=== PATIENT | male | born 1950 | race Caucasian/White ===

== ENCOUNTER → 2017-07-06 | Outpatient (CLI) | payer OTHER ==
[2017-07-06 10:03] LABS: ABSOLUTE BASOPHILS # (AUTO) 0.1 10^3/uL (0.0-0.2); ABSOLUTE EOSINOPHILS # (AUTO) 0.7 10^3/uL (0.0-0.6); ABSOLUTE MONOCYTES (AUTO) 0.8 10^3/uL (0.1-1.4); ABSOLUTE NEUT (AUTO) 4.2 10^3/uL (1.7-8.2); BASOPHILS % (AUTO) 1.1 % (0-2); EOSINOPHILS % (AUTO) 9.2 % (0-6); HEMATOCRIT 44.2 % (37.9-51.0); HEMOGLOBIN 15.3 g/dL (13.5-17.0); HGB HCT DIFFERENCE 1.7; LYMPHOCYTES % (AUTO) 25.5 % (13-45); MEAN CORPUSCULAR HEMOGLOBIN 31.1 pg (27.0-33.4); MEAN CORPUSCULAR HGB CONC 34.5 g/dL (32.0-36.0); MEAN CORPUSCULAR VOLUME 90 fl (80-97); MONOCYTES % (AUTO) 9.8 % (3-13); RED BLOOD COUNT 4.92 10^6/uL (4.35-5.55); RED CELL DISTRIBUTION WIDTH 13.4 % (11.5-14.0); SEGMENTED NEUTROPHILS % (AUTO) 54.4 % (42-78); WHITE BLOOD COUNT 7.8 10^3/uL (4.0-10.5)
[2017-07-06 10:27] LABS: ALANINE AMINOTRANSFERASE 62 U/L (21-72); ALKALINE PHOSPHATASE 188 U/L (38-126); ANION GAP 14 (5-19); ASPARTATE AMINO TRANSFERASE 39 U/L (17-59); BILIRUBIN,DIRECT 0.4 mg/dL (0.0-0.4); BILIRUBIN,TOTAL 0.5 mg/dL (0.2-1.3); BLOOD UREA NITROGEN 14 mg/dL (7-20); CALCIUM 9.6 mg/dL (8.4-10.2); CARBON DIOXIDE 23 mmol/L (22-30); CHLORIDE 108 mmol/L (98-107); CREATININE RESULT 0.93 mg/dL (0.52-1.25); GLUCOSE 91 mg/dL (75-110); POTASSIUM 4.5 mmol/L (3.6-5.0); SODIUM 145.1 mmol/L (137-145); TOTAL PROTEIN 7.1 g/dL (6.3-8.2)
== END ==
LOC: OD 08:49
PROVIDERS: ATTEND Internal Medicine
DX: E10.9 Type 1 diabetes mellitus without complications (principal); Z12.5 Encounter for screening for malignant neoplasm of prostate
CPT/HCPCS: 36415; 80053; 82043; 83036; 84443; 85025

== ENCOUNTER → 2017-10-28 | Outpatient (CLI) | payer OTHER ==
--- NOTE | 2017-10-28 13:08 | RADIOLOGY REPORT (SQ) ---
EXAM DESCRIPTION: U/S ABDOMEN LIMITED W/O DOP COMPLETED DATE/TIME: 10/28/2017 10:50 am REASON FOR STUDY: ABN LFT R79.89 OTHER SPECIFIED ABNORMAL FINDINGS OF BLOOD CHEMISTRY COMPARISON: None. TECHNIQUE: Dynamic and static grayscale images acquired of the abdomen and recorded on PACS. Additio nal selected color Doppler and spectral images recorded. LIMITATIONS: Midline bowel gas FINDINGS: PANCREAS: Not well seen LIVER: No masses. Echotexture normal. LIVER VASCULATURE: Normal directional flow of the main portal vein and hepatic veins. GALLBLADDER: No stones. Normal wall thickness. No pericholecystic fluid. ULTRASOUND-DETECTED DE GUZMAN'S SIGN: Negative. INTRAHEPATIC DUCTS AND COMMON DUCT: No intrahepatic bile duct dilatation very common duct 4 mm at the joseph hepatis. Distal most common duct not well seen due to duodenum gas INFERIOR VENA CAVA: Not well seen AORTA: Not well seen RIGHT KIDNEY: Normal size. Normal echogenicity. No solid or suspicious masses. 3 cm right lower iris e renal cortical cyst. No hydronephrosis. No calcifications. PERITONEAL AND RIGHT PLEURAL SPACE: No ascites or effusions. OTHER: No other significant findings. IMPRESSION: Limited visualization of the pancreas, inferior vena cava, aorta, and distal common duct with midline upper abdominal bowel gas. No liver masses. No gallstones. No right renal hydronephrosis TECHNICAL DOCUMENTATION: JOB ID: [id number] [employer]- All Rights Reserved
== END ==
LOC: RAD 09:47
PROVIDERS: ATTEND Family Medicine Geriatric Medicine
DX: R79.89 Other specified abnormal findings of blood chemistry (principal)
CPT/HCPCS: 76705

== ENCOUNTER → 2017-10-28 | Outpatient (CLI) | payer OTHER ==
[2017-10-28 12:38] LABS: ALANINE AMINOTRANSFERASE 36 U/L (21-72); ALBUMIN 4.2 g/dL (3.5-5.0); ALKALINE PHOSPHATASE 141 U/L (38-126); ANION GAP 9 (5-19); ASPARTATE AMINO TRANSFERASE 29 U/L (17-59); BILIRUBIN,DIRECT 0.1 mg/dL (0.0-0.4); BILIRUBIN,TOTAL 0.4 mg/dL (0.2-1.3); BLOOD UREA NITROGEN 10 mg/dL (7-20); CALCIUM 9.6 mg/dL (8.4-10.2); CARBON DIOXIDE 26 mmol/L (22-30); CHLORIDE 108 mmol/L (98-107); CHOLESTEROL 130.28 mg/dL (0-200); GLUCOSE 91 mg/dL (75-110); POTASSIUM 4.5 mmol/L (3.6-5.0); SODIUM 143.1 mmol/L (137-145); TOTAL PROTEIN 6.7 g/dL (6.3-8.2); TRIGLYCERIDES 95 mg/dL (<150)
[2017-10-28 12:50] LABS: DIRECT LDL 57 mg/dL (<100)
== END ==
LOC: OD 11:27
PROVIDERS: ATTEND Family Medicine Geriatric Medicine
DX: E11.9 Type 2 diabetes mellitus without complications (principal); R79.89 Other specified abnormal findings of blood chemistry; Z79.899 Other long term (current) drug therapy
CPT/HCPCS: 36415; 80048; 80061; 80076

== ENCOUNTER 2018-01-04 05:15 | Day surgery (SDC) | payer MEDICARE, OTHER ==
[2017-12-28 08:52] LABS: HEMATOCRIT 45.1 % (37.9-51.0); HEMOGLOBIN 15.4 g/dL (13.5-17.0); MEAN CORPUSCULAR HEMOGLOBIN 30.7 pg (27.0-33.4); MEAN CORPUSCULAR HGB CONC 34.1 g/dL (32.0-36.0); MEAN CORPUSCULAR VOLUME 90 fl (80-97); PLATELET COUNT 241 10^3/uL (150-450); RED CELL DISTRIBUTION WIDTH 13.6 % (11.5-14.0); WHITE BLOOD COUNT 9.2 10^3/uL (4.0-10.5)
--- NOTE | 2017-12-28 23:31 | EKG REPORT ---
SEVERITY:- BORDERLINE ECG - SINUS RHYTHM BORDERLINE T WAVE ABNORMALITIES : Confirmed by: Noemí Navarro 28-Dec-2017 23:29:34
[~2018-01-04 05:15] MED LIST: ACETAMINOPHEN 325 MG TABLET PO PRN; CEFAZOLIN 1 GM/D5W RTU 1 GM/50 ML RTUPB IV PRN; LACTATED RINGERS 1000 ML IV PRN; LIDOCAINE 0.5% INJ-PF (5 MG/ML) 50 ML SDV SUBCUT PRN
[2018-01-04] MEDS ORDERED: ALBUTEROL SULFATE 0.083% NEB 2.5 MG/3 ML AMPUL NEB ONE (05:53)
[2018-01-04] MEDS ORDERED: BUPIVACAINE HCL 0.25 % INJ/PF (2.5 MG/1 ML) 30 ML VIAL ONE (06:40)
[2018-01-04] MEDS ORDERED: FENTANYL CITRATE INJ/PF 250 MCG/5 ML AMPULE ONE (07:01)
[2018-01-04] MEDS ORDERED: MIDAZOLAM 2 MG/2 ML INJ ONE (07:01)
[2018-01-04] MEDS ORDERED: LIDOCAINE 2% INJ-PF (20 MG/ML) 10 ML AMPUL ONE (07:01)
[2018-01-04] MEDS ORDERED: PROPOFOL INJ 200 MG/20 ML VIAL IV ONE (07:02)
[2018-01-04] MEDS ORDERED: ACETAMINOPHEN 100 ML IV ONE (07:02)
[2018-01-04] MEDS ORDERED: ONDANSETRON HCL INJ/PF 4 MG/2 ML SDV IV PRN ×2 (07:58→08:31)
[2018-01-04] MEDS ORDERED: PROMETHAZINE HCL INJ 25 MG/1 ML VIAL IV PRN ×2 (07:58)
[2018-01-04] MEDS ORDERED: FENTANYL CITRATE INJ/PF 100 MCG/2 ML AMPUL IV PRN ×3 (07:58)
[2018-01-04] MEDS ORDERED: DIPHENHYDRAMINE HCL 50 MG/ML VIAL IV PRN (07:58)
[2018-01-04] MEDS ORDERED: MORPHINE SULFATE 10 MG/ML INJ IV PRN (07:58)
[2018-01-04] MEDS ORDERED: MEPERIDINE HCL/PF INJ 25 MG/1 ML DISP.SYRIN IV PRN (07:58)
[2018-01-04] MEDS ORDERED: OXYCODONE-ACETAMINOPHEN 5-325 MG TABLET PO PRN ×3 (07:58→08:30)
--- NOTE | 2018-01-04 08:29 | Discharge Summary ---
Discharge Summary (SDC) - Discharge Final Diagnosis: Umbilical hernia Date of Surgery: 01/04/18 Discharge Date: 01/04/18 Condition: Stable Treatment or Instructions: [facility] [address] [place] [id number] Discharge Instructions: Laparoscopic Surgery 1. General Information: a. DO NOT DRIVE a car or operate dangerous machinery for 3-4 days or while taking narcotic pain pills. b. DO NOT consume alcohol, tranquilizers, sleeping medications or any non- prescribed medications for 24 hours unless approved by your doctor or as long as taking narcotic prescription medications. c. DO NOT make important decisions or sign any important papers for the first 24 hours after surgery. d. When discharged home the same day of surgery have a responsible person with you for the first night. 2. Activity Restrictions:8 weeks. a. NO heavy lifting, straining abdominal muscles, bending over a lot, yard work, house work, or sports for [address] for 3-4 days . c. It is fine to go for walks, up and down steps, ride in a car. d. Elevate your head when sleeping/resting. 3. Treatment: a. You may shower 48 hours after surgery, no baths or swimming for 2 weeks. Remove dressing with tape over belly button prior to shower. Remove band-aids or dressings before shower but leave paper strips (steri-strips) on the skin to fall off on their own. If still on at postoperative visit they will be removed then. b. Drainage of fluid or blood is not unusual from an incision. If occurs, you can clean with peroxide and cotton ball daily and cover with dry gauze until the wound seals. c. If a lot of bleeding occurs, you can hold pressure with a gauze or cloth over the site for 10 minutes and it will usually stop. If bleeding continues you will need to call for possible evaluation in office or emergency room. 4. Medications: a. __Toradol___ may be taken for pain as needed, one tablet every 6 hours. b. You should resume all normal medications unless a change is specified by your doctors. 5. Diet: Normal diet 6. The following may occur after laparoscopic surgery: a. Shoulder or upper back ache from retained gas that should resolve in 1-2 days b. Soreness and bruising at incision sites will resolve with time. c. Scrotal swelling (labia in women) and bruising is often seen after hernia surgery. d. Sore throat e. Fatigue may last days to weeks. f. Difficulty urinating may occur and may need to come into emergency room for urinary catheter placement. 7. Notify Physician If: a. Worsening or pain not improved with pain medication b. Persistent nausea and vomiting c. Fever above 101 d. Persistent bleeding or swelling at operative site e. Unable to urinate and uncomfortable bladder 6-8 hours after surgery 8..Follow Up Care: a. Schedule a follow up appointment with your doctor for 2 weeks. In the event of any postoperative problems or questions or you may call the office during business hours or the On-Call physician evenings and weekends at [facility]. [facility] I understand the instructions for my postoperative care as described above and a copy has been given to me. Patient/Significant Other Witness Date Prescriptions: Ketorolac Tromethamine [Toradol 10 mg Tablet] 10 mg PO Q6HP PRN #20 tablet PRN Reason: Referrals: IRASEMA RICE MD [Primary Care Provider] - Discharge Diet: As Tolerated Discharge Activity: No Lifting Over 10 Pounds, Walk Frequently, Other - Wear abdominal binder daily Report the Following to Your Physician Immediately: Nausea, Vomiting, Fever over 101 Degrees, Unusual Bleeding, Redness, Drainage-Foul Smelling
--- NOTE | 2018-01-04 08:32 | Operative Report ---
Operative Report DATE OF SURGERY: 01/04/18 PREOPERATIVE DIAGNOSIS: Recurrent umbilical hernia POSTOPERATIVE DIAGNOSIS: Same OPERATION: Laparoscopic primary closure and reinforcement of umbilical hernia, recurrent, with intraperitoneal polypropylene 9 cm Covidien mesh SURGEON: JOSE L PUENTES 1ST SCANNING MANAGER: KRISTY IRWIN ANESTHESIA: GA TISSUE REMOVED OR ALTERED: Fragments of incarcerated fat COMPLICATIONS: None ESTIMATED BLOOD LOSS: Scant INTRAOPERATIVE FINDINGS: See below PROCEDURE: The patient was taken to the preop holding area the main operating room where general anesthesia was induced. Arms abducted, abdominal wall prepped and draped sterile fashion with Betadine Surgical plan and surgical timeout conducted. Markings were made on the skin for 3 port scopic approach. Skin was anesthetized with plain lidocaine 1%. A small shakira was made in the left upper quadrant with 11 blade, Veress needle inserted the peritoneal cavity pneumoperitoneum was established. Veress needle was removed, 5 mm port was inserted 5 mm viewing scope was inserted. Under direct visualization 2 additional ports are placed, both 5 mm, one on left lower quadrant one of the right mid field. Findings are significant for omentum incarcerated into the recurrent umbilical hernia. Also there were sutures and/or lazaro, approximately 3 and a horizontal line of the umbilical hernia defect consistent with his hernia repair. We could not visualize mesh directly. The omentum was brought out of the umbilicus using a combination of blunt and electrocautery dissection. The hernia sac was left in situ which was quite thin. There was no significant bleeding. We closed the hernia defect with a single #1-0 PDS suture [id number] fashion in a vertical orientation. Pneumoperitoneum was decompressed during knot tying. We now brought onto the field a 9 cm Covidien polypropylene mesh, marked it accordingly, affixed 0 PDS sutures 12, 3, 6, 9:00 positions, rolled it , brought up to the anterior abdominal wall at the right lower quadrant site incision. The mesh was unrolled and brought up to the intra-abdominal wall, and secured into position at the 4 sites with the percutaneous suture passer. Knots were tied. We then came back around, deploying 2 rows of secure tack lazaro, approximately 15 total lysed. Completion images showed excellent positioning and vision of the mesh to the intra-abdominal wall. We checked the viscera for bleeding and any evidence of injury and there was none. We felt the operation was complete. Sponge and needle counts correct. All ports removed under direct visualization, pneumoperitoneum evacuated, wounds closed with 3-0 Vicryl benzoin and Steri-Strips. Patient tolerated procedure well, extubated, taken recovery in stable condition. The physician child welfare assistant, Ms. Tovar, provided assistance during this case by: Assisting and port insertion, retracting tissue, instillation of local anesthesia and closure of skin incisions.
[2018-01-04 11:57] VITALS: BP 133/81
[2018-01-04] MEDS ORDERED: DEXAMETHASONE SOD PHOSPHATE INJ 4 MG/1 ML VIAL ONE (12:10)
[2018-01-04] MEDS ORDERED: KETOROLAC TROMETHAMINE 60 MG/2 ML SDV ONE (12:10)
[2018-01-04] MEDS ORDERED: GLYCOPYRROLATE INJ 0.4 MG/2 ML VIAL ONE (12:10)
[2018-01-04] MEDS ORDERED: SUCCINYLCHOLINE CHLORIDE INJ 200 MG/10 ML VIAL ONE (12:10)
[2018-01-04] MEDS ORDERED: ONDANSETRON HCL INJ/PF 4 MG/2 ML SDV ONE (12:10)
[2018-01-04] MEDS ORDERED: NEOSTIGMINE METHYLSULFATE 10 MG/10 ML VIAL ONE (12:10)
[2018-01-04] MEDS ORDERED: ROCURONIUM BROMIDE INJ 50 MG/5 ML VIAL IV ONE (12:10)
== END 2018-01-04 10:50 | disposition home or self-care (01) ==
LOC: OROUT 05:15
PROVIDERS: ATTEND Surgery
PROC: 0WUF4JZ Supplement Abdominal Wall with Synthetic Substitute, Percutaneous Endoscopic Approach (ICD-10-PCS; principal; 2018-01-04 07:30)
DX: K42.9 Umbilical hernia without obstruction or gangrene (principal); J45.909 Unspecified asthma, uncomplicated; E11.9 Type 2 diabetes mellitus without complications; I10 Essential (primary) hypertension; Z87.891 Personal history of nicotine dependence; Z79.84 Long term (current) use of oral hypoglycemic drugs; Z79.51 Long term (current) use of inhaled steroids
CPT/HCPCS: 93005; 36415 ×2; 82962; 84132; 85027; 93010; 49652; C1781; J2250; J0690; J3490 ×2; J1100; J1885; J3010; A9270 ×2; J0330; J2405; J2704; J0131; 752

== ENCOUNTER → 2018-01-26 | Outpatient (CLI) | payer MEDICARE, OTHER ==
[2018-01-26 11:06] LABS: ALANINE AMINOTRANSFERASE 39 U/L (21-72); ALBUMIN 4.1 g/dL (3.5-5.0); ALKALINE PHOSPHATASE 172 U/L (38-126); ANION GAP 12 (5-19); ASPARTATE AMINO TRANSFERASE 30 U/L (17-59); BILIRUBIN,DIRECT 0.2 mg/dL (0.0-0.4); BILIRUBIN,TOTAL 0.6 mg/dL (0.2-1.3); BLOOD UREA NITROGEN 16 mg/dL (7-20); CALCIUM 9.8 mg/dL (8.4-10.2); CARBON DIOXIDE 30 mmol/L (22-30); CHLORIDE 101 mmol/L (98-107); CHOLESTEROL 140.58 mg/dL (0-200); GLUCOSE 136 mg/dL (75-110); SODIUM 142.8 mmol/L (137-145); TOTAL PROTEIN 6.9 g/dL (6.3-8.2); TRIGLYCERIDES 91 mg/dL (<150)
[2018-01-26 11:17] LABS: DIRECT LDL 55 mg/dL (<100)
[2018-01-27 14:02] LABS: MICROALBUMIN URINE <3.0 ug/mL (Not Estab.)
== END ==
LOC: OD 10:02
PROVIDERS: ATTEND Family Medicine Geriatric Medicine
DX: E11.9 Type 2 diabetes mellitus without complications (principal); I10 Essential (primary) hypertension; E78.5 Hyperlipidemia, unspecified; E66.9 Obesity, unspecified; Z79.899 Other long term (current) drug therapy
CPT/HCPCS: 36415; 80053; 80061; 82043; 82570; 83036

== ENCOUNTER → 2018-09-15 | Outpatient (CLI) | payer MEDICARE, OTHER ==
[2018-09-15 08:20] LABS: ABSOLUTE BASOPHILS # (AUTO) 0.1 10^3/uL (0.0-0.2); ABSOLUTE EOSINOPHILS # (AUTO) 0.4 10^3/uL (0.0-0.6); ABSOLUTE LYMPHOCYTES (AUTO) 2.2 10^3/uL (0.5-4.7); ABSOLUTE MONOCYTES (AUTO) 0.7 10^3/uL (0.1-1.4); ABSOLUTE NEUT (AUTO) 4.6 10^3/uL (1.7-8.2); EOSINOPHILS % (AUTO) 5.5 % (0-6); HEMATOCRIT 44.6 % (37.9-51.0); LYMPHOCYTES % (AUTO) 27.5 % (13-45); MEAN CORPUSCULAR HEMOGLOBIN 30.8 pg (27.0-33.4); MEAN CORPUSCULAR HGB CONC 33.7 g/dL (32.0-36.0); MEAN CORPUSCULAR VOLUME 91 fl (80-97); MONOCYTES % (AUTO) 8.5 % (3-13); PLATELET COUNT 217 10^3/uL (150-450); RED BLOOD COUNT 4.88 10^6/uL (4.35-5.55); RED CELL DISTRIBUTION WIDTH 14.8 % (11.5-14.0); SEGMENTED NEUTROPHILS % (AUTO) 57.5 % (42-78); TOTAL CELLS COUNTED % (AUTO) 100 %
[2018-09-15 08:47] LABS: ALANINE AMINOTRANSFERASE 30 U/L (21-72); ALBUMIN 3.8 g/dL (3.5-5.0); ALKALINE PHOSPHATASE 140 U/L (38-126); ANION GAP 9 (5-19); ASPARTATE AMINO TRANSFERASE 28 U/L (17-59); BILIRUBIN,DIRECT 0.2 mg/dL (0.0-0.4); BILIRUBIN,TOTAL 0.6 mg/dL (0.2-1.3); BLOOD UREA NITROGEN 16 mg/dL (7-20); CALCIUM 9.2 mg/dL (8.4-10.2); CARBON DIOXIDE 24 mmol/L (22-30); CHLORIDE 110 mmol/L (98-107); CHOLESTEROL 115.87 mg/dL (0-200); GLUCOSE 103 mg/dL (75-110); POTASSIUM 4.2 mmol/L (3.6-5.0); TOTAL PROTEIN 6.4 g/dL (6.3-8.2); TRIGLYCERIDES 87 mg/dL (<150)
[2018-09-15 09:01] LABS: DIRECT LDL 56 mg/dL (<100)
[2018-09-16 11:37] LABS: CREATININE URINE 117.9 mg/dL (Not Estab.)
[2018-09-16 18:06] LABS: MICROALBUMIN URINE <3.0 ug/mL (Not Estab.)
== END ==
LOC: OD 07:45
PROVIDERS: ATTEND Family Medicine Geriatric Medicine
DX: E11.9 Type 2 diabetes mellitus without complications (principal); E78.5 Hyperlipidemia, unspecified; Z79.899 Other long term (current) drug therapy
CPT/HCPCS: 36415; 80053; 80061; 82043; 82570; 83036; 85025

== ENCOUNTER → 2018-12-29 | Outpatient (CLI) | payer MEDICARE, OTHER ==
[2018-12-29 09:23] LABS: ALANINE AMINOTRANSFERASE 36 U/L (21-72); ALBUMIN 3.9 g/dL (3.5-5.0); ALKALINE PHOSPHATASE 128 U/L (38-126); ASPARTATE AMINO TRANSFERASE 27 U/L (17-59); BILIRUBIN,DIRECT 0.2 mg/dL (0.0-0.4); BILIRUBIN,TOTAL 0.6 mg/dL (0.2-1.3); CHOLESTEROL 126.55 mg/dL (0-200); TOTAL PROTEIN 6.2 g/dL (6.3-8.2); TRIGLYCERIDES 160 mg/dL (<150)
[2018-12-29 09:34] LABS: DIRECT LDL 54 mg/dL (<100)
== END ==
LOC: OD 08:27
PROVIDERS: ATTEND Family Medicine Geriatric Medicine
DX: R79.89 Other specified abnormal findings of blood chemistry (principal); Z79.899 Other long term (current) drug therapy
CPT/HCPCS: 36415; 80061; 80076

== ENCOUNTER → 2019-03-12 | Outpatient (CLI) | payer OTHER ==
--- NOTE | 2019-03-13 09:10 | RADIOLOGY REPORT (SQ) ---
EXAM DESCRIPTION: MRI RT LOWER EXTREMITY WITHOUT COMPLETED DATE/TIME: 03/12/2019 6:55 pm REASON FOR STUDY: M79.651 PAIN IN RIGHT THIGH M79.651 PAIN IN RIGHT THIGH COMPARISON: None. TECHNIQUE: Multiplanar imaging of the right thigh to include fat and fluid sensitive sequences. LIMITATIONS: None. FINDINGS: BONE MARROW: Normal. SOFT TISSUES: There is a high-grade partial tear of the semimembranosus tendon near the musculotendin ous junction in the mid thigh. There is associated 2.5 cm diameter by 6 cm craniocaudal diameter hem atoma. Neurovascular structures appear intact. OTHER: No other significant finding. IMPRESSION: High-grade partial tear of the semimembranosus tendon musculotendinous junction. TECHNICAL DOCUMENTATION: JOB ID: [id number] [employer]- All Rights Reserved Reading location - IP/workstation name: [email or web address]
== END ==
LOC: RAD 17:30
PROVIDERS: ATTEND Orthopaedic Surgery
DX: S76.811A Strain of other specified muscles, fascia and tendons at thigh level, right thigh, initial encounter (principal); M79.651 Pain in right thigh; X58.XXXA Exposure to other specified factors, initial encounter

== ENCOUNTER → 2019-05-17 | Outpatient (CLI) | payer MEDICAID, MEDICARE ==
[2019-05-17 12:28] LABS: ALBUMIN 4.2 g/dL (3.5-5.0); ALKALINE PHOSPHATASE 144 U/L (38-126); ANION GAP 9 (5-19); ASPARTATE AMINO TRANSFERASE 28 U/L (17-59); BILIRUBIN,DIRECT 0.3 mg/dL (0.0-0.4); BILIRUBIN,TOTAL 0.5 mg/dL (0.2-1.3); BLOOD UREA NITROGEN 14 mg/dL (7-20); CALCIUM 9.6 mg/dL (8.4-10.2); CARBON DIOXIDE 26 mmol/L (22-30); CHLORIDE 105 mmol/L (98-107); CHOLESTEROL 131.65 mg/dL (0-200); GLUCOSE 95 mg/dL (75-110); POTASSIUM 4.5 mmol/L (3.6-5.0); TOTAL PROTEIN 7.2 g/dL (6.3-8.2); TRIGLYCERIDES 142 mg/dL (<150)
[2019-05-17 12:45] LABS: DIRECT LDL 68 mg/dL (<100)
== END ==
LOC: OD 11:07
PROVIDERS: ATTEND Family Medicine Geriatric Medicine
DX: E78.5 Hyperlipidemia, unspecified (principal); E11.9 Type 2 diabetes mellitus without complications; I10 Essential (primary) hypertension; Z79.899 Other long term (current) drug therapy
CPT/HCPCS: 36415; 80053; 80061; 82043; 82570; 83036

== ENCOUNTER → 2019-09-20 | Outpatient (CLI) | payer MEDICARE, OTHER ==
[2019-09-20 09:55] LABS: ABSOLUTE BASOPHILS # (AUTO) 0.1 10^3/uL (0.0-0.2); ABSOLUTE EOSINOPHILS # (AUTO) 0.4 10^3/uL (0.0-0.6); ABSOLUTE LYMPHOCYTES (AUTO) 2.2 10^3/uL (0.5-4.7); ABSOLUTE MONOCYTES (AUTO) 0.7 10^3/uL (0.1-1.4); ABSOLUTE NEUT (AUTO) 3.9 10^3/uL (1.7-8.2); BASOPHILS % (AUTO) 1.2 % (0-2); HEMATOCRIT 47.5 % (37.9-51.0); HEMOGLOBIN 16.2 g/dL (13.5-17.0); LYMPHOCYTES % (AUTO) 30.2 % (13-45); MEAN CORPUSCULAR HEMOGLOBIN 31.1 pg (27.0-33.4); MEAN CORPUSCULAR HGB CONC 34.1 g/dL (32.0-36.0); MEAN CORPUSCULAR VOLUME 91 fl (80-97); PLATELET COUNT 195 10^3/uL (150-450); RED BLOOD COUNT 5.21 10^6/uL (4.35-5.55); RED CELL DISTRIBUTION WIDTH 13.4 % (11.5-14.0); SEGMENTED NEUTROPHILS % (AUTO) 53.6 % (42-78); TOTAL CELLS COUNTED % (AUTO) 100 %; WHITE BLOOD COUNT 7.3 10^3/uL (4.0-10.5)
[2019-09-20 10:21] LABS: ALBUMIN 4.2 g/dL (3.5-5.0); ALKALINE PHOSPHATASE 131 U/L (38-126); ANION GAP 13 (5-19); ASPARTATE AMINO TRANSFERASE 30 U/L (17-59); BILIRUBIN,DIRECT 0.1 mg/dL (0.0-0.4); BILIRUBIN,TOTAL 0.6 mg/dL (0.2-1.3); BLOOD UREA NITROGEN 15 mg/dL (7-20); CALCIUM 9.6 mg/dL (8.4-10.2); CARBON DIOXIDE 26 mmol/L (22-30); CHLORIDE 101 mmol/L (98-107); GLUCOSE 96 mg/dL (75-110); POTASSIUM 4.2 mmol/L (3.6-5.0); TOTAL PROTEIN 7.1 g/dL (6.3-8.2)
== END ==
LOC: OD 09:33
PROVIDERS: ATTEND Family Medicine Geriatric Medicine
DX: I10 Essential (primary) hypertension (principal); R79.89 Other specified abnormal findings of blood chemistry; Z79.899 Other long term (current) drug therapy
CPT/HCPCS: 36415; 80053; 85025

== ENCOUNTER → 2020-02-04 | Outpatient (CLI) | payer MEDICARE, OTHER ==
[2020-02-04 10:17] LABS: ALBUMIN 4.1 g/dL (3.5-5.0); ALKALINE PHOSPHATASE 127 U/L (38-126); ASPARTATE AMINO TRANSFERASE 29 U/L (17-59); BILIRUBIN,TOTAL 0.6 mg/dL (0.2-1.3); CHOLESTEROL 119.09 mg/dL (0-200); TOTAL PROTEIN 6.6 g/dL (6.3-8.2); TRIGLYCERIDES 77 mg/dL (<150)
[2020-02-04 10:29] LABS: DIRECT LDL 53 mg/dL (<100)
[2020-02-05 12:36] LABS: CREATININE URINE 138.2 mg/dL (Not Estab.); MICROALBUMIN URINE 7.1 ug/mL (Not Estab.)
== END ==
LOC: OD 08:57
PROVIDERS: ATTEND Family Medicine Geriatric Medicine
DX: E11.9 Type 2 diabetes mellitus without complications (principal); E78.5 Hyperlipidemia, unspecified; I10 Essential (primary) hypertension; Z79.899 Other long term (current) drug therapy
CPT/HCPCS: 36415; 80061; 80076; 82043; 82570; 83036

== ENCOUNTER → 2020-03-19 | Outpatient (CLI) | payer MEDICARE, OTHER ==
--- NOTE | 2020-03-19 11:21 | RADIOLOGY REPORT (SQ) ---
EXAM DESCRIPTION: BARIUM SWALLOW ESOPHAGUS IMAGES COMPLETED DATE/TIME: 03/19/2020 9:53 am REASON FOR STUDY: DYSPHAGIA (R13.12) R13.12 DYSPHAGIA, OROPHARYNGEAL PHASE COMPARISON: None. TECHNIQUE: Under fluoroscopic guidance, patient ingested effervescent granules followed by thick and thin barium. Fluoroscopic spot images and routine radiographic images acquired and stored on PACS. 12 MM BARIUM TABLET GIVEN: Yes. Delay in passage at the GE junction. LIMITATIONS: None. FLUOROSCOPY TIME: FLUORO TIME: 1 minutes 51 seconds of fluoroscopy was used. 8 images saved to PACS. FINDINGS: NEUROMUSCULAR COORDINATION OF SWALLOW: Normal. No aspiration. ESOPHAGEAL MOTILITY: Normal peristalsis. Mild tertiary contractions in the distal half esophagus. N o esophageal spasm. ESOPHAGEAL MUCOSA: Normal mucosa without masses or ulceration. Mild tapered narrowing of the distal esophagus without evidence of ulceration. GASTRO-ESOPHAGEAL JUNCTION: Mild narrowing at the GE junction causing delay in passage of a 12 mm bar ium tablet exceeding 20 minutes. No hiatal hernia seen. Moderate free-flowing gastroesophageal refl ux. NON-GI TRACT STRUCTURES: No significant finding. OTHER: No other significant finding. IMPRESSION: SMOOTH TAPERED NARROWING AT THE GE JUNCTION WHICH CAUSE DELAY IN PASSAGE OF 12 MM BARIUM TABLET FOR MORE THAN 20 MINUTES. FREE-FLOWING GASTROESOPHAGEAL REFLUX NOTED, FINDINGS SUGGESTIVE OF THE PEPTIC STRICTURE. COMMENT: Quality ID [id number]: Final reports for procedures using fluoroscopy that document radiation exp osure indices, or exposure time and number of fluorographic images (if radiation exposure indices are not available) TECHNICAL DOCUMENTATION: JOB ID: [id number] 2010 [employer]- All Rights Reserved Reading location - IP/workstation name: [email or web address] [id number]
== END ==
LOC: RAD 08:59
PROVIDERS: ATTEND Internal Medicine Gastroenterology
DX: K21.9 Gastro-esophageal reflux disease without esophagitis (principal); R13.12 Dysphagia, oropharyngeal phase
CPT/HCPCS: 74220

== ENCOUNTER → 2020-05-26 | Outpatient (CLI) | payer MEDICARE, OTHER ==
[2020-05-26 11:16] LABS: ALBUMIN 4.2 g/dL (3.5-5.0); ALKALINE PHOSPHATASE 140 U/L (38-126); ANION GAP 7 (5-19); ASPARTATE AMINO TRANSFERASE 34 U/L (17-59); BILIRUBIN,DIRECT 0.3 mg/dL (0.0-0.4); BILIRUBIN,TOTAL 0.6 mg/dL (0.2-1.3); BLOOD UREA NITROGEN 16 mg/dL (7-20); CALCIUM 9.2 mg/dL (8.4-10.2); CARBON DIOXIDE 28 mmol/L (22-30); CHLORIDE 104 mmol/L (98-107); GLUCOSE 99 mg/dL (75-110); POTASSIUM 4.4 mmol/L (3.6-5.0); TOTAL PROTEIN 6.6 g/dL (6.3-8.2)
== END ==
LOC: OD 09:57
PROVIDERS: ATTEND Family Medicine Geriatric Medicine
DX: I10 Essential (primary) hypertension (principal); R79.89 Other specified abnormal findings of blood chemistry; Z79.899 Other long term (current) drug therapy
CPT/HCPCS: 36415; 80053

== ENCOUNTER 2020-06-23 06:14 | Emergency (ER) | payer MEDICARE, OTHER ==
[2020-06-23 06:54] LABS: ABSOLUTE BASOPHILS # (AUTO) 0.1 10^3/uL (0.0-0.2); ABSOLUTE EOSINOPHILS # (AUTO) 0.1 10^3/uL (0.0-0.6); ABSOLUTE LYMPHOCYTES (AUTO) 1.3 10^3/uL (0.5-4.7); ABSOLUTE MONOCYTES (AUTO) 0.8 10^3/uL (0.1-1.4); ABSOLUTE NEUT (AUTO) 9.6 10^3/uL (1.7-8.2); BASOPHILS % (AUTO) 0.9 % (0-2); EOSINOPHILS % (AUTO) 1.2 % (0-6); HEMATOCRIT 42.8 % (37.9-51.0); HEMOGLOBIN 15.1 g/dL (13.5-17.0); LYMPHOCYTES % (AUTO) 11.1 % (13-45); MEAN CORPUSCULAR HEMOGLOBIN 31.5 pg (27.0-33.4); MEAN CORPUSCULAR HGB CONC 35.2 g/dL (32.0-36.0); MEAN CORPUSCULAR VOLUME 89 fl (80-97); MONOCYTES % (AUTO) 6.7 % (3-13); PLATELET COUNT 222 10^3/uL (150-450); RED BLOOD COUNT 4.79 10^6/uL (4.35-5.55); RED CELL DISTRIBUTION WIDTH 13.1 % (11.5-14.0); SEGMENTED NEUTROPHILS % (AUTO) 80.1 % (42-78); TOTAL CELLS COUNTED % (AUTO) 100 %
[2020-06-23 07:19] LABS: ALBUMIN 4.1 g/dL (3.5-5.0); ALKALINE PHOSPHATASE 172 U/L (38-126); ANION GAP 10 (5-19); ASPARTATE AMINO TRANSFERASE 32 U/L (17-59); BILIRUBIN,DIRECT 0.2 mg/dL (0.0-0.4); BILIRUBIN,TOTAL 0.6 mg/dL (0.2-1.3); BLOOD UREA NITROGEN 20 mg/dL (7-20); CALCIUM 9.4 mg/dL (8.4-10.2); CARBON DIOXIDE 26 mmol/L (22-30); CHLORIDE 99 mmol/L (98-107); GLUCOSE 144 mg/dL (75-110); POTASSIUM 3.9 mmol/L (3.6-5.0); TOTAL PROTEIN 6.8 g/dL (6.3-8.2)
[2020-06-23] MEDS ORDERED: HYDROMORPHONE HCL INJ/PF 2 MG/ML AMPULE IV ONE ×2 (07:33→09:13)
[2020-06-23] MEDS ORDERED: RINGERS SOLUTION,LACTATED 1,000 ML IV ONE (07:33)
[2020-06-23] MEDS ORDERED: ONDANSETRON HCL INJ/PF 4 MG/2 ML SDV IV ONE (07:33)
[2020-06-23] MEDS ORDERED: PANTOPRAZOLE SODIUM 40 MG VIAL IV ONE (07:34)
--- NOTE | 2020-06-23 09:13 | ER Document Report ---
Entered by HOUSTON DESAI SCRIBE 06/23/20 0733 Acting as scribe for:CORAL TREJO MD ED GI/ - General Chief Complaint: Flank Pain Stated Complaint: VOMITING BLOOD Time Seen by Provider: 06/23/20 07:15 Primary Care Provider: IRASEMA RICE MD [Primary Care Provider] - Follow up as needed Mode of Arrival: Ambulatory Information source: Patient Notes: This 69 year old male patient presents to the emergency department today with complaints of vomiting blood. He was seen at a hospital in [place] on Jun 19 and was diagnosed with a 4-6mm left ureteral stone and was sent home on Mcdonald, Motrin, Cipro, Zofran, and Flomax. He states he did not have a urinary tract infection to his knowledge. Patient mentions that last night around 5 PM he ate lasagna for dinner, this morning around 5 AM he woke up and had 3 episodes of vomiting with bright red blood and clots. TRAVEL OUTSIDE OF THE [place] IN LAST 30 DAYS: No - Related Data Allergies/Adverse Reactions: Beta-Blockers (Beta-Adrenergic Bloc Allergy (Severe, Verified 01/04/18 05:19) lisinopril Adverse Reaction (Verified 12/21/17 12:25) Past Medical History - General Information source: Patient - Social History Smoking Status: Never Smoker Cigarette use (# per day): No Frequency of alcohol use: None Drug Abuse: None Lives with: Family Family History: Reviewed & Not Pertinent - Past Medical History Cardiac Medical History: Reports: Hx Hypertension Pulmonary Medical History: Reports: Hx Asthma, Hx COPD Surgical Hx: Negative - Immunizations Hx Diphtheria, Pertussis, Tetanus Vaccination: Yes Hx Pneumococcal Vaccination: 03/26/17 Review of Systems - Review of Systems Constitutional: No symptoms reported EENT: No symptoms reported Cardiovascular: No symptoms reported Respiratory: No symptoms reported Gastrointestinal: See HPI, Nausea, Vomiting, Blood in vomit Genitourinary: See HPI, Flank pain - Left Male Genitourinary: No symptoms reported Musculoskeletal: No symptoms reported Skin: No symptoms reported Hematologic/Lymphatic: No symptoms reported Neurological/Psychological: No symptoms reported -: Yes All other systems reviewed and negative Physical Exam - Vital signs Vitals: Temp Pulse Resp BP Pulse Ox 97.8 F 87 18 149/92 H 95 06/23/20 06:22 06/23/20 06:22 06/23/20 06:22 06/23/20 06:22 06/23/20 06:22 - Notes Notes: Physical Exam: General: Alert, appears well. HEENT: Normocephalic. Atraumatic. PERRL. Extraocular movements intact. Oropharynx clear. Neck: Supple. Non-tender. Respiratory: No respiratory distress. Clear and equal breath sounds bilaterally. Cardiovascular: Regular rate and rhythm. Abdominal: Normal Inspection. Non-tender. No distension. Normal Bowel Sounds. Back: Left lumbar back muscles are tender to palpation which the patient mentions is a chronic problem. No CVA tenderness to percussion. No gross abnormalities. Extremities: Moves all four extremities. Upper extremities: Normal inspection. Normal ROM. Lower extremities: Normal inspection. No edema. Normal ROM. Neurological: Normal cognition. AAOx4. Normal speech. Psychological: Normal affect. Normal Mood. Skin: Warm. Dry. Normal color. Course - Re-evaluation Re-evalutation: 06/23/20 11:56 At this time the patient is feeling better. He has had no nauseousness and no vomiting. He only threw up what he thought was blood the one time. His stool was heme negative. I would not expect the stool to be positive if his first episode of throwing up the blood was today. I am concerned that the lasagna he had last night for dinner may be what was thrown up and not blood. Since the kidney stone was diagnosed in [place] and we have no records to verify the stone, we will repeat the CT scan so that we can see how large it is, where it is, whether or not there is any hydronephrosis. His physical exam did show more muscular tenderness than percussion tenderness in the back. - Vital Signs Vital signs: Temp Pulse Resp BP Pulse Ox 97.8 F 62 16 149/83 H 96 06/23/20 06:22 06/23/20 12:04 06/23/20 12:04 06/23/20 12:04 06/23/20 12:04 - Laboratory Result Diagrams: 06/23/20 06:40 06/23/20 06:40 Laboratory results interpreted by me: 06/23/20 06/23/20 06/23/20 06:40 06:40 09:24 WBC 12.0 H Lymph % (Auto) 11.1 L Absolute Neuts (auto) 9.6 H Seg Neutrophils % 80.1 H Sodium 135.1 L Est GFR (MDRD) Non-Af 58 L Glucose 144 H Alkaline Phosphatase 172 H Urine Glucose (UA) 50 H Urine Blood SMALL H Discharge - Discharge Clinical Impression: Ureterolithiasis, Renal colic on left side, History of hematemesis Condition: Stable Disposition: HOME, SELF-CARE Additional Instructions: Kidney Stone: You are passing a kidney stone. These stones are usually due to increased calcium or uric acid concentrations in your urine. Stones within the kidney itself are not painful. The pain occurs as the stone leaves the kidney to pass down the long tube, called the ureter, leading to the bladder. If the stone is small, it will usually pass by itself. Most patients can pass the stone at home. You will usually receive medications for pain, nausea or vomiting, and sometimes a medication to assist in passing the kidney stone. However, if the pain is very severe or if vomiting prevents you from taking oral pain medications, you may need to return for further treatment. Drink three or four quarts of fluids per day. You will be given pain medication (if needed) and urine strainers. Strain all your urine to see if the stone passes. If your doctor has asked you to bring the stone in for analysis, return with the stone once it has passed. Return if pain or vomiting become severe, if you develop a high fever, if you are unable to pass your urine, or if other unusual symptoms occur. The CT scan shows you have a 4 mm stone in the left distal ureter very close to the bladder. The pain and nausea should go away once the stone passes into the bladder. You should drink plenty of fluids, take the medications as prescribed, strain your urine, and follow-up with a local urologist. Stop taking the ibuprofen that had been prescribed previously. Do not take any other nonsteroidal anti-inflammatory drugs such as Motrin, Aleve, or Naprosyn. Continue taking the tamsulosin/Flomax and if the stone has not passed then start the new prescription for the tamsulosin/Flomax. Take either the Percocet prescribed today or the hydrocodone that you had been prescribed previously for your kidney stone pain. The history of vomiting blood is worrisome since you were taking ibuprofen. You have not had any more of that problem in several hours. You did eat lasagna last night and that may be what was seen when you vomited. If you have any further vomiting of reddish liquids, try to put some in a container and bring with you to the emergency room for reevaluation. Follow-up with [facility] if you do not pass the stone within the next week. Return to the emergency room immediately if you begin running fevers. RETURN TO THE EMERGENCY ROOM IF ANY NEW OR WORSENING SYMPTOMS. Prescriptions: Tamsulosin HCl [Flomax 0.4 mg Cap.sr] 0.4 mg PO DAILY #7 cap.sr.24h Oxycodone HCl/Acetaminophen [Percocet 5-325 mg Tablet] 1 tab PO ASDIR PRN #20 tablet PRN Reason: Referrals: IRASEMA RICE MD [Primary Care Provider] - Follow up as needed [facility] [Provider Group] - Follow up as needed I personally performed the services described in the documentation, reviewed and edited the documentation which was dictated to the scribe in my presence, and it accurately records my words and actions.
[2020-06-23 09:37] LABS: APPEARANCE,URINE CLEAR; BILIRUBIN,URINE NEGATIVE (NEGATIVE); COLOR,URINE YELLOW; GLUCOSE, URINE 50 mg/dL (NEGATIVE); KETONES,URINE NEGATIVE (NEGATIVE); LEUKOCYTE ESTERASE,URINE NEGATIVE (NEGATIVE); NITRITE,URINE NEGATIVE (NEGATIVE); PROTEIN,URINE NEGATIVE (NEGATIVE); URINE SPECIFIC GRAVITY 1.012; UROBILINOGEN,URINE NEGATIVE mg/dL (<2.0)
[2020-06-23 12:05] VITALS: BP 149/83
--- NOTE | 2020-06-23 12:47 | RADIOLOGY REPORT (SQ) ---
EXAM DESCRIPTION: CT ABD/PELVIS NO ORAL OR IV IMAGES COMPLETED DATE/TIME: 06/23/2020 12:24 pm REASON FOR STUDY: Left renal colic COMPARISON: None. TECHNIQUE: CT scan of the abdomen and pelvis performed without intravenous or oral contrast. Images reviewed with lung, soft tissue, and bone windows. Reconstructed coronal and sagittal MPR images revi ewed. All images stored on PACS. All CT scanners at this facility use dose modulation, iterative reconstruction, and/or weight based d osing when appropriate to reduce radiation dose to as low as reasonably achievable (ALARA). [facility]: Dose Right [facility]: CareDose [facility]: Dose Right [facility]: Teradose 4D [facility]: [employer] RADIATION DOSE: CT Rad equipment meets quality standard of care and radiation dose reduction techniq ues were employed. CTDIvol: 16.8 mGy. DLP: 1056 mGy-cm. LIMITATIONS: None. FINDINGS: LOWER CHEST: The curvilinear opacities in the lower lobes could represent subsegmental ate lectasis or scars. There is no basilar consolidation or pleural effusion. NON-CONTRASTED LIVER, SPLEEN, ADRENALS: Evaluation is limited due to the absence of intravenous contr ast. There is no evidence of hepatic steatosis. The spleen is normal in size. There is no adrenal mass. PANCREAS: No acute gross abnormality of the pancreas. GALLBLADDER: No abnormality that is apparent on CT. RIGHT KIDNEY AND URETER: Parapelvic cysts and 3.2 x 3 cm exophytic simple cyst in the lower pole of t he kidney. There is no hydronephrosis, nephrolithiasis, hydroureter or ureterolithiasis. LEFT KIDNEY AND URETER: Parapelvic cysts. There is a 4 mm calculus within the distal ureter (image 8 6 of series 3) that is associated with mild to moderate hydroureteronephrosis, asymmetric enlargement of the kidney and asymmetric stranding of the perinephric fat. There is no other renal or ureteral calcification. AORTA AND RETROPERITONEUM: No aneurysm of the abdominal aorta. No retroperitoneal adenopathy, hemorr dewayne or mass. BOWEL AND PERITONEAL CAVITY: Colonic diverticulosis without diverticulitis. There is no bowel obstru ction, bowel wall thickening or pericolonic/ perienteric inflammation. There is no mesenteric adenop athy, free intraperitoneal fluid or mesenteric/ omental inflammation. APPENDIX: Unable to identify the appendix. There is no pericecal inflammation. PELVIS, BLADDER, AND ABDOMINAL WALL:No abdominal wall mass or hernia. BONES: Calcified cystic lesion that appears to arise from the left L3-L4 facet joint and projects int o the spinal canal resulting in compression of the thecal sac (image 55 of series 3). OTHER: No other finding. IMPRESSION: 1. 4 mm distal left ureteral calculus associated with mild to moderate hydroureteroneph rosis. 2. Bilateral parapelvic cysts. 3. Colonic diverticulosis without diverticulitis. 4. Synovial cyst that arises from the left L3-L4 facet joint and projects into the spinal canal resu lting in compression of the thecal sac (image 55 of series 3). COMMENT: Quality ID # [id number]: Final reports with documentation of one or more dose reduction techniques (e.g., Automated exposure control, adjustment of the mA and/or kV according to patient size, use of iterative reconstruction technique) TECHNICAL DOCUMENTATION: JOB ID: [id number] 2010 [employer]- All Rights Reserved Reading location - IP/workstation name: [email or web address]
== END 2020-06-23 13:30 | disposition home or self-care (01) ==
LOC: ER 06:14
DX: N20.1 Calculus of ureter (principal); R11.2 Nausea with vomiting, unspecified; R10.9 Unspecified abdominal pain; I10 Essential (primary) hypertension
CPT/HCPCS: 99285; 96361; 96374; 96375; 36415; 85025; 82270; 80053; 81001; 74176; J1170; C9113; J2405; J7120

== ENCOUNTER 2020-07-03 03:14 | Emergency (ER) | payer MEDICARE, OTHER ==
[2020-07-03] MEDS ORDERED: ONDANSETRON HCL INJ/PF 4 MG/2 ML SDV IV ONE ×2 (03:59→04:06)
[2020-07-03] MEDS ORDERED: KETOROLAC TROMETHAMINE INJ/PF 30 MG/1 ML SDV IV ONE (03:59)
[2020-07-03 04:36] LABS: ABSOLUTE BASOPHILS # (AUTO) 0.1 10^3/uL (0.0-0.2); ABSOLUTE EOSINOPHILS # (AUTO) 0.1 10^3/uL (0.0-0.6); ABSOLUTE MONOCYTES (AUTO) 0.8 10^3/uL (0.1-1.4); ABSOLUTE NEUT (AUTO) 11.7 10^3/uL (1.7-8.2); BASOPHILS % (AUTO) 0.5 % (0-2); EOSINOPHILS % (AUTO) 0.4 % (0-6); HEMATOCRIT 47.6 % (37.9-51.0); HEMOGLOBIN 16.9 g/dL (13.5-17.0); LYMPHOCYTES % (AUTO) 7.5 % (13-45); MEAN CORPUSCULAR HEMOGLOBIN 31.6 pg (27.0-33.4); MEAN CORPUSCULAR HGB CONC 35.4 g/dL (32.0-36.0); MEAN CORPUSCULAR VOLUME 89 fl (80-97); MONOCYTES % (AUTO) 6.2 % (3-13); PLATELET COUNT 308 10^3/uL (150-450); RED BLOOD COUNT 5.33 10^6/uL (4.35-5.55); RED CELL DISTRIBUTION WIDTH 13.2 % (11.5-14.0); SEGMENTED NEUTROPHILS % (AUTO) 85.4 % (42-78); TOTAL CELLS COUNTED % (AUTO) 100 %; WHITE BLOOD COUNT 13.7 10^3/uL (4.0-10.5)
--- NOTE | 2020-07-03 04:50 | ER Document Report ---
ED Medical Screen (RME) - General Chief Complaint: Possible Kidney Stone Stated Complaint: KIDNEY STONE Time Seen by Provider: 07/03/20 04:46 Primary Care Provider: IRASEMA RICE MD [Primary Care Provider] - Follow up as needed Mode of Arrival: Ambulatory Information source: Patient Notes: HPI; 69-year-old male presents to the emergency room complaining of worsening left flank pain for the past 2 to 3 days. States he was seen here 10 days ago diagnosed with a left kidney stone. States pain has gotten more severe. He is waiting on a outpatient urology appointment. Complains of nausea but no vomiting. No fevers PE: Alert and oriented x3. Lungs: Clear to auscultation without rales, rhonchi, wheezes. Heart: Regular rate rhythm without murmurs, rubs, gallops. Positive for left CVA tenderness. I have greeted and performed a rapid initial assessment of this patient. A comprehensive ED assessment and evaluation of the patient, analysis of test resu lts and completion of the medical decision making process will be conducted by additional ED providers. I have specifically instructed the patient or family members with the patient to immediately return to any nursing staff should anything change in the patient's condition or with their chief complaint. TRAVEL OUTSIDE OF THE [place] IN LAST 30 DAYS: No - Related Data Allergies/Adverse Reactions: Beta-Blockers (Beta-Adrenergic Bloc Allergy (Severe, Verified 07/03/20 03:53) lisinopril Adverse Reaction (Verified 07/03/20 03:53) Past Medical History - Social History Frequency of alcohol use: None Drug Abuse: None - Past Medical History Cardiac Medical History: Reports: Hx Hypertension Denies: Hx Coronary Artery Disease, Hx Heart Attack Pulmonary Medical History: Reports: Hx Asthma, Hx COPD Denies: Hx Bronchitis, Hx Pneumonia Neurological Medical History: Denies: Hx Cerebrovascular Accident, Hx Seizures Musculoskeltal Medical History: Denies Hx Arthritis - Immunizations Hx Diphtheria, Pertussis, Tetanus Vaccination: Yes Physical Exam - Vital signs Vitals: Temp Pulse Resp BP Pulse Ox 97.5 F 71 20 137/90 H 97 07/03/20 03:20 07/03/20 03:20 07/03/20 03:20 07/03/20 03:20 07/03/20 03:20 Course - Vital Signs Vital signs: Temp Pulse Resp BP Pulse Ox 97.5 F 71 20 137/90 H 97 07/03/20 03:20 07/03/20 03:20 07/03/20 03:20 07/03/20 03:20 07/03/20 03:20 - Laboratory Result Diagrams: 07/03/20 04:15 07/03/20 04:15 Laboratory results interpreted by me: 07/03/20 04:15 WBC 13.7 H Lymph % (Auto) 7.5 L Absolute Neuts (auto) 11.7 H Seg Neutrophils % 85.4 H Doctor's Discharge - Discharge Referrals: IRASEMA RICE MD [Primary Care Provider] - Follow up as needed
[2020-07-03 04:55] LABS: ALKALINE PHOSPHATASE 167 U/L (38-126); ANION GAP 16 (5-19); ASPARTATE AMINO TRANSFERASE 49 U/L (17-59); BILIRUBIN,DIRECT 0.3 mg/dL (0.0-0.4); BILIRUBIN,TOTAL 0.8 mg/dL (0.2-1.3); BLOOD UREA NITROGEN 28 mg/dL (7-20); CALCIUM 9.8 mg/dL (8.4-10.2); CARBON DIOXIDE 26 mmol/L (22-30); CHLORIDE 95 mmol/L (98-107); GLUCOSE 181 mg/dL (75-110); POTASSIUM 4.3 mmol/L (3.6-5.0)
[2020-07-03 05:07] LABS: APPEARANCE,URINE CLEAR; BILIRUBIN,URINE NEGATIVE (NEGATIVE); COLOR,URINE YELLOW; GLUCOSE, URINE NEGATIVE (NEGATIVE); KETONES,URINE 20 mg/dL (NEGATIVE); LEUKOCYTE ESTERASE,URINE NEGATIVE (NEGATIVE); NITRITE,URINE NEGATIVE (NEGATIVE); PROTEIN,URINE NEGATIVE (NEGATIVE); UROBILINOGEN,URINE NEGATIVE mg/dL (<2.0)
--- NOTE | 2020-07-03 06:31 | RADIOLOGY REPORT (SQ) ---
COMPLETED DATE/TME: 07/03/2020 04:47 EXAM: CT abdomen and pelvis without contrast. INDICATION: Left flank pain. TECHNIQUE: Contiguous axial CT images of the abdomen and pelvis. Intravenous contrast: Absent. Oral contrast: Absent. Protocol: Renal stone. DLP 993 mGy-cm. This exam was performed according to our departmental dose-optimization program, which includes automated exposure control, adjustment of the mA and/or kV according to patient size and/or use of iterative reconstruction technique. COMPARISON: 06/23/2020. FINDINGS: Lower chest: Partially imaged. Lung bases: Unremarkable. Cardiac apex: Unremarkable. Solid abdominal viscera: Limited by lack of intravenous contrast. Liver: Unremarkable. Gallbladder: Unremarkable. Pancreas: Unremarkable. Spleen: Unremarkable. Adrenal glands: Unremarkable. Right kidney: No urolithiasis or hydronephrosis. Parapelvic cysts. Left kidney: The previously described 4 mm stone within the distal left ureter has slightly migrated more distally, just proximal to the UVJ. Persistent mild hydronephrosis and hydroureter. Parapelvic cysts. Urinary bladder: Unremarkable. Abdominal aorta: Mild atherosclerotic calcifications. Peritoneal: Free fluid: None. Free air: None. Other: No pathologic sized lymph nodes in the upper abdomen. Bowel: Stomach: Unremarkable. Small bowel: Unremarkable. Appendix: Not uniquely identified, however there are no pericecal inflammatory changes. Colon: Diverticulosis without evidence of diverticulitis. Rectum: Unremarkable. Prostate: Unremarkable. Bones: No acute fracture or subluxation. Synovial cyst at the left L3-L4 facet joint is again noted, causing compression of the thecal sac. IMPRESSION: Slight migration of the previously described 4 mm stone into the more distal left ureter, just proximal to the UVJ. Persistent mild left hydronephrosis and hydroureter.
--- NOTE | 2020-07-03 06:51 | ER Document Report ---
ED GI/ - General Chief Complaint: Possible Kidney Stone Stated Complaint: KIDNEY STONE Time Seen by Provider: 07/03/20 04:46 Primary Care Provider: IRASEMA RICE MD [Primary Care Provider] - Follow up as needed Mode of Arrival: Ambulatory Notes: This 69-year-old man presents to the emergency department with a history of a left ureteral stone. Apparently, waiting follow-up with his urologist. He has taken the last of his oxycodone and has had severe episodic pain with nausea. States that the Zofran was not helping with the nausea at home and that his pain is more severe. He denies fever or dysuria. TRAVEL OUTSIDE OF THE [place] IN LAST 30 DAYS: No - Related Data Allergies/Adverse Reactions: Beta-Blockers (Beta-Adrenergic Bloc Allergy (Severe, Verified 07/03/20 03:53) lisinopril Adverse Reaction (Verified 07/03/20 03:53) Past Medical History - General Information source: Patient - Social History Smoking Status: Former Smoker Frequency of alcohol use: None Drug Abuse: None Family History: Reviewed & Not Pertinent - Past Medical History Cardiac Medical History: Reports: Hx Hypertension Denies: Hx Coronary Artery Disease, Hx Heart Attack Pulmonary Medical History: Reports: Hx Asthma, Hx COPD Denies: Hx Bronchitis, Hx Pneumonia Neurological Medical History: Denies: Hx Cerebrovascular Accident, Hx Seizures Endocrine Medical History: Reports: Hx Diabetes Mellitus Type 2 Musculoskeletal Medical History: Denies Hx Arthritis Past Surgical History: Reports: Hx Appendectomy, Hx Orthopedic Surgery - Immunizations Hx Diphtheria, Pertussis, Tetanus Vaccination: Yes Hx Pneumococcal Vaccination: 03/26/17 Review of Systems - Review of Systems Notes: Constitutional: Negative for fever. HENT: Negative for sore throat. Eyes: Negative for visual changes. Cardiovascular: Negative for chest pain. Respiratory: Negative for shortness of breath. Gastrointestinal: + Nausea Genitourinary: + Left flank pain Musculoskeletal: Negative for back pain. Skin: Negative for rash. Neurological: Negative for headaches, weakness or numbness. 10 point ROS negative except as marked above and in HPI. Physical Exam - Vital signs Vitals: Temp Pulse Resp BP Pulse Ox 97.5 F 71 20 137/90 H 97 07/03/20 03:20 07/03/20 03:20 07/03/20 03:20 07/03/20 03:20 07/03/20 03:20 - Notes Notes: PHYSICAL EXAMINATION: Physical Exam: General: Well-nourished well-developed 69-year-old man in no acute distress HEENT: NC/AT, pupils equal round and reactive to light, MM moist,nares clear, oropharynx clear, airway patent Neck: supple, no adenopathy, no masses. Good range of motion Lungs: clear, no wheezing, no rales no rhonchi CVS: Regular rate and rhythm no murmur gallop or rub Abdomen: Soft, active, nontender, no masses, no hepatosplenomegaly Ext: No edema, clubbing or cyanosis. Neuro: Alert and responsive, moving all 4 extremities on command, cranial nerves intact, no focal findings Skin: Intact no open lesions, no rash Course - Re-evaluation Re-evalutation: 07/03/20 06:46 Patient is comfortable at this point he had been given IV medications as well as pain and nausea control. He states that he does not have the appointment scheduled yet with the urologist and that he is out of pain medication. I have explained that the stone has moved down to the distal ureter just above the UVJ and that he may passed this kidney stone. - Vital Signs Vital signs: Temp Pulse Resp BP Pulse Ox 97.5 F 71 20 137/90 H 97 07/03/20 03:20 07/03/20 03:20 07/03/20 03:20 07/03/20 03:20 07/03/20 03:20 - Laboratory Result Diagrams: 07/03/20 04:15 07/03/20 04:15 Laboratory results interpreted by me: 07/03/20 07/03/20 07/03/20 04:15 04:15 04:40 WBC 13.7 H Lymph % (Auto) 7.5 L Absolute Neuts (auto) 11.7 H Seg Neutrophils % 85.4 H Sodium 136.7 L Chloride 95 L BUN 28 H Creatinine 1.55 H Est GFR ( Amer) 54 L Est GFR (MDRD) Non-Af 45 L Glucose 181 H ALT 70 H Alkaline Phosphatase 167 H Urine Ketones 20 H Urine Blood SMALL H 07/03/20 06:45 I have reviewed laboratory data and used this information for the treatment decisions regarding the patient. - Diagnostic Test Radiology reviewed: Image reviewed, Reports reviewed Radiology results interpreted by me: 07/03/20 06:45 CT abdomen pelvis: Migration of the previous 4 mm stone to the distal left ureter just above the UVJ. Mild hydronephrosis and mild hydroureter noted as previous. Discharge - Discharge Clinical Impression: Renal colic on left side, Kidney stone on left side Condition: Good Disposition: HOME, SELF-CARE Instructions: Antinausea Medication ([facility]), Oral Narcotic Medication ([facility]) Additional Instructions: You are seen for a ongoing difficulty with kidney stone. Kidney stone has moved down to the distal portion of the ureter. Continue to push fluids, continue to take the medication as prescribed. You are given Phenergan 25 mg tablets for nausea and a refill of your pain medication. Please follow-up with urology as previously planned if needed. HOME CARE INSTRUCTIONS & INFORMATION: Thank you for choosing us for your medical needs. We hope you're satisfied with the care you received. After you leave, you must properly care for your problem and, at the same time, observe its progress. Any condition can change. Some illnesses can change rapidly over hours or days. If your condition worsens, return to the Emergency Department or see your physician promptly. ABOUT YOUR X-RAYS AND EKG'S: If you had an EKG or X-rays taken, they have been read by the Emergency Physician. The X-rays and EKG's will also be read by a Radiologist or Pharmacognosist within 24 hours. If discrepancies are noted, you will be notified by telephone. Please be certain the ED has a correct telephone number & address where you can be reached. Also, realize that some fractures or abnormalities do not show up on initial X-rays. If your symptoms continue, see your physician. ABOUT YOUR LABORATORY TEST: If you had laboratory tests, the results have been reviewed by the Emergency Physician. Some test results (for example cultures) may not be available for several days. You will be contacted if any test result shows you need additional treatment. Please be certain the ED has a correct telephone number and address where you can be reached. ABOUT YOUR MEDICATIONS: You will receive instructions on how to take your medicine on the prescription label you receive. Additional information may be provided by the Pharmacy. If you have questions afterwards, call the ED for clarification or further instructions. Some prescribed medications may cause drowsiness. Do not perform tasks such as driving a car or operating machinery without consulting your Pharmacist. If you feel you need a refill of pain medication, your condition will need re-evaluation. Please do not call for a refill of any medication. ABOUT YOUR SIGNATURE: Signature of this document acknowledges to followin. Understanding that you received emergency treatment and that you may be released before al medical problems are known or treated. Please be certain the ED has a correct phone number & address where you can be reached. 2. Acknowledgement that you will arrange for follow-up care as recommended. 3. Authorization for the Emergency Physician to provide information to your follow-up Physician in order to maximize your care. AT ANY TIME, IF YOUR SYMPTOMS CHANGE SIGNIFICANTLY OR WORSEN OR YOU DEVELOP NEW SYMPTOMS, RETURN TO THE EMERGENCY DEPARTMENT IMMEDIATELY FOR RE-EVALUATION. OUR GOAL IS TO PROVIDE EXCELLENT MEDICAL CARE! WE HOPE THAT WE HAVE MET YOUR EXPECTATIONS DURING YOUR EMERGENCY DEPARTMENT VISIT AND THAT YOU FEEL YOU HAVE RECEIVED EXCELLENT CARE! Prescriptions: Oxycodone HCl/Acetaminophen [Percocet 5-325 mg Tablet] 1 tab PO Q4H PRN #10 tablet PRN Reason: Promethazine HCl [Phenergan 25 mg Tablet] 1 - 2 tab PO Q6H PRN #15 tablet PRN Reason: Referrals: IRASEMA RICE MD [Primary Care Provider] - Follow up as needed
[2020-07-03 07:19] VITALS: BP 122/82
== END 2020-07-03 07:17 | disposition home or self-care (01) ==
LOC: ER 03:14
DX: N13.2 Hydronephrosis with renal and ureteral calculous obstruction (principal); R10.9 Unspecified abdominal pain; R11.0 Nausea; I10 Essential (primary) hypertension; J44.9 Chronic obstructive pulmonary disease, unspecified; E11.9 Type 2 diabetes mellitus without complications; Z87.891 Personal history of nicotine dependence; Z88.8 Allergy status to other drugs, medicaments and biological substances
CPT/HCPCS: 99285; 96374; 96375; 36415; 83690; 85025; 80053; 81001; 74176; J1885; J2405

== ENCOUNTER → 2020-08-11 | Outpatient (CLI) | payer MEDICARE, OTHER ==
[2020-08-11 10:22] LABS: ABSOLUTE BASOPHILS # (AUTO) 0.1 10^3/uL (0.0-0.2); ABSOLUTE EOSINOPHILS # (AUTO) 0.3 10^3/uL (0.0-0.6); ABSOLUTE LYMPHOCYTES (AUTO) 2.1 10^3/uL (0.5-4.7); ABSOLUTE MONOCYTES (AUTO) 0.7 10^3/uL (0.1-1.4); ABSOLUTE NEUT (AUTO) 4.8 10^3/uL (1.7-8.2); BASOPHILS % (AUTO) 1.2 % (0-2); EOSINOPHILS % (AUTO) 3.9 % (0-6); HEMOGLOBIN 14.5 g/dL (13.5-17.0); LYMPHOCYTES % (AUTO) 26.7 % (13-45); MEAN CORPUSCULAR HEMOGLOBIN 30.7 pg (27.0-33.4); MEAN CORPUSCULAR HGB CONC 34.5 g/dL (32.0-36.0); MEAN CORPUSCULAR VOLUME 89 fl (80-97); MONOCYTES % (AUTO) 8.2 % (3-13); PLATELET COUNT 219 10^3/uL (150-450); RED BLOOD COUNT 4.73 10^6/uL (4.35-5.55); RED CELL DISTRIBUTION WIDTH 13.5 % (11.5-14.0); TOTAL CELLS COUNTED % (AUTO) 100 %
[2020-08-11 10:44] LABS: ALBUMIN 4.1 g/dL (3.5-5.0); ALKALINE PHOSPHATASE 160 U/L (38-126); ASPARTATE AMINO TRANSFERASE 28 U/L (17-59); BILIRUBIN,TOTAL 0.5 mg/dL (0.2-1.3); CHOLESTEROL 139.15 mg/dL (0-200); TOTAL PROTEIN 6.8 g/dL (6.3-8.2); TRIGLYCERIDES 152 mg/dL (<150)
[2020-08-11 10:56] LABS: DIRECT LDL 49 mg/dL (<100)
[2020-08-11 10:58] LABS: VLDL CHOLESTEROL 30.4 mg/dL (10-31)
[2020-08-12 11:37] LABS: CREATININE URINE 104.8 mg/dL (Not Estab.); MICROALBUMIN URINE 102.4 ug/mL (Not Estab.)
== END ==
LOC: OD 09:27
PROVIDERS: ATTEND Family Medicine Geriatric Medicine
DX: E11.9 Type 2 diabetes mellitus without complications (principal); E78.5 Hyperlipidemia, unspecified; I10 Essential (primary) hypertension; Z79.899 Other long term (current) drug therapy
CPT/HCPCS: 36415; 80061; 80076; 82043; 82570; 83036; 85025

== ENCOUNTER → 2020-08-25 | Outpatient (CLI) | payer MEDICARE, OTHER ==
--- NOTE | 2020-08-25 11:31 | RADIOLOGY REPORT (SQ) ---
EXAM DESCRIPTION: U/S ABDOMEN LIMITED W/O DOP IMAGES COMPLETED DATE/TIME: 08/25/2020 11:20 am REASON FOR STUDY: (R94.5)ABNORMAL RESULTS OF LIVER FUNCTION STUDIES R94.5 ABNORMAL RESULTS OF LIVER FUNCTION STUDIES COMPARISON: None. TECHNIQUE: Dynamic and static grayscale images acquired of the abdomen and recorded on PACS. Additio nal selected color Doppler and spectral images recorded. LIMITATIONS: None. FINDINGS: PANCREAS: Limited visualization due to overlying bowel gas. No obvious masses. LIVER: Increased echogenicity consistent with steatosis. Normal size. No focal lesions. LIVER VASCULATURE: Normal directional flow of the main portal vein and hepatic veins. GALLBLADDER: No stones. Normal wall thickness. No pericholecystic fluid. ULTRASOUND-DETECTED DE GUZMAN'S SIGN: Negative. INTRAHEPATIC DUCTS AND COMMON DUCT: CBD and intrahepatic ducts normal caliber. No filling defects. AORTA: No aneurysm. RIGHT KIDNEY: Multiple right parapelvic renal cysts. The right kidney measures 12.3 cm in size. PERITONEAL AND RIGHT PLEURAL SPACE: No ascites or effusions. OTHER: No other significant findings. IMPRESSION: 1. Multiple right parapelvic renal cysts. 2. Hepatic steatosis. TECHNICAL DOCUMENTATION: JOB ID: [id number] 2010 [employer]- All Rights Reserved Reading location - IP/workstation name: [email or web address]
== END ==
LOC: RAD 10:36
PROVIDERS: ATTEND Family Medicine Geriatric Medicine
DX: R94.5 Abnormal results of liver function studies (principal); Q61.02 Congenital multiple renal cysts; K76.0 Fatty (change of) liver, not elsewhere classified
CPT/HCPCS: 76705